=== PATIENT | female | born 1995 | race Caucasian/White ===

== ENCOUNTER → 2024-06-15 12:10 | Outpatient (REF) | payer BC, SELFPAY | LOC: EMG 12:10 | PROVIDERS: ATTENDING PHYSICIAN Orthopaedic Surgery; FAMILY PHYSICIAN Family Medicine | DX: G56.03 Carpal tunnel syndrome, bilateral upper limbs (principal); R20.0 Anesthesia of skin | CPT/HCPCS: 95886; 95911 ==